=== PATIENT | female | born 1950 | race Native Hawaiian/Other Pacific Islander ===

== ENCOUNTER 2017-07-02 16:51 | Emergency (ER) | payer BC, OTHER ==
[~2017-07-02] VITALS: Ht 152.4 cm; Wt 81.2 kg
[~2017-07-02 16:51] MED LIST: ALPR0.2566 PO; AZOR1 TAB PO; FLEXERIL5 MG PO; LEVO0.0723 PO; PANT40TA PO; PRILOSEC20 MG PO; SERT50TA PO; TENORMIN100 MG PO; TRADJENTA5 MG PO; ULTRAM50 MG PO
[2017-07-02] MEDS ORDERED: ASPIR-LOW81 MG PO (17:11)
[2017-07-02] MEDS ORDERED: ATEN50TA36 PO (17:14)
[2017-07-02] MEDS ORDERED: METFORMIN HCL500 M1 PO (17:15)
[2017-07-02] MEDS ORDERED: GLIP10TA55 PO (17:15)
[2017-07-02] MEDS ORDERED: EZET10TA13 OR (17:16)
[2017-07-02] MEDS ORDERED: ALPR0.5T24 PO (17:21)
[2017-07-02 18:23] LABS: PLATELET COUNT 172 K/uL (152-353)
[2017-07-02 18:26] LABS: POTASSIUM 3.2 mmol/L (3.6-5.2)
[2017-07-02 23:25] VITALS: BP 122/60; TEMP 98.7
== END 2017-07-02 23:25 | disposition short-term general hospital (02) ==
LOC: ED 16:51
PROVIDERS: Specialist
DX: K35.89 Other acute appendicitis (principal); R10.0 Acute abdomen
CPT/HCPCS: 36415; 80053; 81000; 82150; 83690; 85027; 96361; 96365; 96375; 99284; J2270; J2405; J2543

== ENCOUNTER 2017-09-29 21:10 | Outpatient (CLI) | payer OTHER ==
[~2017-09-29 21:10] MED LIST changes: +ALPR0.5T24 PO; +ASPIR-LOW81 MG PO; +ATEN50TA36 PO; +EZET10TA13 OR; +GLIP10TA55 PO; +METFORMIN HCL500 M1 PO
== END 2017-09-29 22:30 | disposition home or self-care (01) ==
LOC: LAB 21:10
DX: R50.9 Fever, unspecified (principal)
CPT/HCPCS: 87077; 87086; 87088; 87186

== ENCOUNTER 2018-02-25 08:59 | Outpatient (CLI) | payer OTHER | END 2018-02-25 19:15 | disposition home or self-care (01) | LOC: US 08:59 | DX: R10.13 Epigastric pain (principal) ==

== ENCOUNTER 2018-10-11 08:00 | Outpatient (CLI) | payer OTHER ==
[2018-10-11 08:22] LABS: PLATELET COUNT 194 K/uL (152-353)
[2018-10-11 08:53] LABS: POTASSIUM 4.4 mmol/L (3.6-5.2)
== END 2018-10-11 22:16 | disposition home or self-care (01) ==
LOC: LABW 08:00
PROVIDERS: Internal Medicine
DX: M19.90 Unspecified osteoarthritis, unspecified site (principal); I10 Essential (primary) hypertension; E11.9 Type 2 diabetes mellitus without complications; E03.9 Hypothyroidism, unspecified
CPT/HCPCS: 36415; 80053; 81000; 84443; 85027; 85651; 86038; 86140; 86430; 86592

== ENCOUNTER 2018-12-06 09:30 | Outpatient (CLI) | payer OTHER | END 2018-12-06 19:46 | disposition home or self-care (01) | LOC: RAD 09:30 | DX: M89.9 Disorder of bone, unspecified (principal) ==

== ENCOUNTER 2018-12-13 10:50 | Outpatient (CLI) | payer OTHER | END 2018-12-13 22:38 | disposition home or self-care (01) | LOC: RAD 10:50 | DX: R05 Cough (principal) ==